=== PATIENT | female | born 1990 ===

== ENCOUNTER 2016-07-26 01:49 | Emergency (ER) | payer BC, OTHER ==
[2016-07-26] MEDS ORDERED: FAMOTIDINE 20 MG/50 ML IVPB 50 ML IVPB ONE ×2 (01:54→02:03)
[2016-07-26] MEDS ORDERED: SODIUM CHLORIDE 1,000 ML IV STA (01:54)
[2016-07-26] MEDS ORDERED: morphine CARPU-JECT 4 MG/1 ML DISP.SYRIN IVPUSH ONE (01:54)
[2016-07-26 02:00] VITALS: BP 139/82; PULSE 107; TEMP 98.3; BMI 44.2
--- NOTE | 2016-07-26 02:01 | PDOC ---
History of Present Illness - General Chief Complaint: Pain, Acute Stated Complaint: ABDOMINAL PAIN Time Seen by Provider: 07/26/16 01:54 History Source: Patient, Parent(s), Old Records Exam Limitations: Clinical Condition - History of Present Illness Initial Comments: 07/26/16 01:58 25 y obese female hx oflap band which has been disabled since summer last year 2 /2 malfunction. presents to ed c/o sudden onset of epigastric abdominal pain last night. no n/v/d. no fever. pain does not radiate. in "severe" pain. difficult to interrogate and exam. will start IV provide pain control and reassess Past History - Past Medical History Allergies/Adverse Reactions: Allergies Allergy/AdvReac Type Severity Reaction Status Date / Time amoxicillin [Amoxicillin] Allergy Swelling Verified 10/04/15 19:57 Penicillins Allergy Swelling Verified 10/04/15 19:57 Home Medications: Ambulatory Orders [facility] 07/26/16 Lexapro - 07/26/16 Xanax 07/26/16 Asthma: Yes - Surgical History Abdominal Surgery: Yes (LAP BAND 06/26/2015) - Immunization History Immunization Up to Date: Yes - Psycho/Social/Smoking Cessation Hx Anxiety: No Suicidal Ideation: No Smoking History: Never smoked Hx Alcohol Use: No Drug/Substance Use Hx: No *Physical Exam - Vital Signs Last Vital Signs Temp Pulse Resp BP Pulse Ox 98.3 F 107 H 18 139/82 98 07/26/16 01:51 07/26/16 01:51 07/26/16 01:51 07/26/16 01:51 07/26/16 01:51 ED Treatment Course - LABORATORY CBC & Chemistry Diagram: 07/26/16 02:20 07/26/16 02:20 Progress Note - Progress Note Progress Note: Pain improving after morphine/pepcid Abdomen soft, mild epigastric tenderness.no ruq pain or tenderness. no rlq tenderness maalox po labs wnl saurav po discussed w/ pt and family. will follow up w/ pmd this week and return prn *DC/Admit/Observation/Transfer Diagnosis at time of Disposition: Abdominal pain Qualifiers: Abdominal location: epigastric Qualified Code(s): R10.13 - Epigastric pain - Discharge Dispostion Disposition: HOME Condition at time of disposition: Improved - Patient Instructions Additional Instructions: PLENTY OF FLUIDS (WATER/GATORADE) BLAND DIET, ADVANCE TOLERATED EAT FREQUENT, SMALL MEALS THROUGHOUT THE DAY MAALOX, 30 ml 1/2 HOUR AFTER MEALS AND AT BED TIME SEE YOUR DOCTOR THIS WEEK RETURN IF FEVER, VOMITING, SEVERE PAIN - Post Discharge Activity Work/School Note: Back to Work
[2016-07-26] MEDS ORDERED: morphine CARPU-JECT 10 MG/1 ML DISP.SYRIN ONE (02:03)
[2016-07-26 02:58] LABS: BASOPHIL 0.1 % (0-2.0); EOSINOPHIL 1.1 % (0-4.5); MCH 26.5 pg (25.7-33.7); MCHC 31.2 g/dl (32.0-36.0); MEAN PLT VOLUME 9.3 fl (7.5-11.1); NEUTROPHILS 80.6 % (42.8-82.8); PLATELET COUNT 212 K/MM3 (134-434); RDW 14.1 % (11.6-15.6); WHITE BLOOD COUNT 13.7 K/mm3 (4.0-10.0)
[2016-07-26 03:45] LABS: ALBUMIN 3.4 g/dl (3.4-5.0); ALK PHOS 83 U/L (45-117); ANION GAP 10 (8-16); BILIRUBIN,TOTAL 0.6 mg/dL (0.2-1.0); CALCIUM 8.6 mg/dL (8.5-10.1); CO2 29 mmol/L (21-32); GLUCOSE,RANDOM 112 mg/dL (74-106); SGPT/ALT 38 U/L (12-78); TOT PROT 6.7 g/dl (6.4-8.2)
[2016-07-26] MEDS ORDERED: MAG HYDROX/AL HYDROX/SIMETH 30 ML UNIT-DOSE CUP ONE (04:27)
[2016-07-26 05:08] LABS: SGOT/AST 57 U/L (15-37)
== END 2016-07-26 04:40 | disposition home or self-care (01) ==
LOC: FER 01:49
PROC: 3E033GC Introduction of Other Therapeutic Substance into Peripheral Vein, Percutaneous Approach (ICD-10-PCS; principal; 2016-07-26)
PROC: 3E033NZ Introduction of Analgesics, Hypnotics, Sedatives into Peripheral Vein, Percutaneous Approach (ICD-10-PCS; 2016-07-26)
PROC: 3E0337Z Introduction of Electrolytic and Water Balance Substance into Peripheral Vein, Percutaneous Approach (ICD-10-PCS; 2016-07-26)
DX: R10.13 Epigastric pain (principal); Z98.84 Bariatric surgery status; E66.9 Obesity, unspecified; Z68.41 Body mass index [BMI] 40.0-44.9, adult
CPT/HCPCS: 36415; 71010-TC; 80053; 83690; 84702; 85025; 99283-25